=== PATIENT | female | born 1990 | race Caucasian/White ===

== ENCOUNTER 2020-02-04 10:25 | Outpatient (CLI) | payer OTHER ==
[~2020-02-04 10:25] MED LIST: Acetaminophen 500 MG TAB PO PRN; Butorphanol Tartrate 1 MG/ML VIAL SLOW IVP PRN; Diphenoxylate HCl/Atropine Tablet PO PRN; Docusate 100 MG CAP PO PRN; HYDROcodone/Acetaminophen 5/325 mg Tablet PO PRN; Ibuprofen 800 MG TAB PO PRN; Lactated Ringer's 1,000 ML IV SCH; Lidocaine 1% (PF) 30 ML VIAL SC PRN; Misoprostol 100 MCG TAB VAG SCH; Misoprostol 200 MCG TAB PR PRN; NS / Oxytocin 40 units/1000ml 1,000 ML IV PRN; NS w/ Oxytocin 10 units 500 ML IV SCH; Ondansetron PF 4 MG/2 ML Vial IVP PRN; Promethazine HCl 25 MG/ML VIAL IM PRN; Zolpidem Tartrate 5 MG TAB PO PRN; hydrALAZINE 20 MG/ML VIAL SLOW IVP PRN
[2020-02-04 18:00] LABS: SARS-CoV-2 MS2 Positive; SARS-CoV-2 N Gene Negative; SARS-CoV-2 S Gene Negative; SARS-CoV-2 by NAA Not Detected (NotDetected); SARS-CoV-2 orf1ab Negative
== END 2020-02-04 10:26 | disposition home or self-care (01) ==
LOC: LABBT 10:25
PROVIDERS: ATTEND Obstetrics & Gynecology
DX: Z01.812 Encounter for preprocedural laboratory examination (principal); Z20.828 Contact with and (suspected) exposure to other viral communicable diseases
CPT/HCPCS: 87635; U0003

== ENCOUNTER 2020-02-05 05:40 | Inpatient (IN) | payer OTHER ==
[2020-02-05 06:14] VITALS: BMI 38.4
[2020-02-05] MEDS ORDERED: Lactated Ringer's 1,000 ML IV SCH (08:15)
[2020-02-05] MEDS ORDERED: hydrALAZINE 20 MG/ML VIAL SLOW IVP PRN (08:15)
[2020-02-05] MEDS ORDERED: Butorphanol Tartrate 1 MG/ML VIAL SLOW IVP PRN (08:15)
[2020-02-05] MEDS ORDERED: Ibuprofen 800 MG TAB PO PRN (08:15)
[2020-02-05] MEDS ORDERED: HYDROcodone/Acetaminophen 5/325 mg Tablet PO PRN (08:15)
[2020-02-05] MEDS ORDERED: NS / Oxytocin 40 units/1000ml 1,000 ML IV PRN (08:15)
[2020-02-05] MEDS ORDERED: Lidocaine 1% (PF) 30 ML VIAL SC PRN (08:15)
[2020-02-05] MEDS ORDERED: NS w/ Oxytocin 10 units 500 ML IV SCH (08:15)
[2020-02-05] MEDS ORDERED: Ondansetron PF 4 MG/2 ML Vial IVP PRN ×2 (08:15→11:36)
[2020-02-05 08:47] LABS: Hemoglobin 10.8 g/dL (12.0-16.0); Mean Corpuscular HGB CONC 33.6 g/dL (32.0-36.0); Mean Corpuscular Hemoglobin 28.7 pg (27.0-31.0); Mean Corpuscular Volume 85.5 fL (78.0-98.0); Mean Platelet Volume 7.3 fL (7.4-10.4); Platelet Count 330 thou/uL (130-400); Red Blood Cell (RBC) Count 3.77 mill/uL (4.20-5.40); White Blood Cell (WBC) Count 15.9 thou/uL (4.8-10.8)
[2020-02-05 09:27] LABS: Syphilis Antibody Nonreactive (Nonreactive); Syphilis Antibody Index 0.03 S/CO (<1.00 Non-Reactive)
[2020-02-05 09:28] LABS: HBSAg Index 0.17 S/CO (0-0.99); Hep B Surf Ag Non-Reactive S/CO (NonReactive)
[2020-02-05] MEDS ORDERED: Bupivacaine 0.5% 20 ML, fentaNYL Citrate/PF 400 MCG in Sodium Chloride 0.9% 72 ML EPIDURAL SCH (10:45)
[2020-02-05] MEDS ORDERED: DISCONTINUE ALL PREVIOUS NARCOTICS FS SCH (10:45)
[2020-02-05] MEDS ORDERED: Promethazine HCl 25 MG/ML VIAL IM PRN (11:36)
[2020-02-05] MEDS ORDERED: diphenhydrAMINE 50 MG/ML VIAL IVP PRN (11:36)
[2020-02-05] MEDS ORDERED: Acetaminophen 325 MG TAB PO PRN (11:36)
[2020-02-05] MEDS ORDERED: Lactated Ringer's 500 ML IV PRN (11:36)
[2020-02-05] MEDS ORDERED: Naloxone HCl 0.4 mg/ml Vial IVP PRN ×2 (11:36)
[2020-02-05] MEDS ORDERED: ePHEDrine 50 MG/ML VIAL SLOW IVP PRN (11:36)
[2020-02-05] MEDS ORDERED: Fentanyl 4 mcg/Bupivacaine 0.1% Cassette 100 ML EPIDURAL SCH (11:45)
[2020-02-05] MEDS ORDERED: Communication Order-Pharmacy FS SCH (11:45)
[2020-02-05] MEDS ORDERED: Terbutaline Sulfate 1 MG/ML VIAL ONE (11:53)
[2020-02-05] MEDS ORDERED: Bupivacaine/Epinephrine 0.25% 30 ML VIAL ONE (12:43)
[2020-02-06] MEDS ORDERED: diphenhydrAMINE 25 MG CAP PO PRN (01:19)
[2020-02-06] MEDS ORDERED: Misoprostol 200 MCG TAB VAG PRN (01:19)
[2020-02-06] MEDS ORDERED: hydrALAZINE 20 MG/ML VIAL SLOW IVP PRN (01:19)
[2020-02-06] MEDS ORDERED: Zolpidem Tartrate 5 MG TAB PO PRN (01:19)
[2020-02-06] MEDS ORDERED: Milk Of Magnesia 30 ML UDCUP PO PRN (01:19)
[2020-02-06] MEDS ORDERED: Benzocaine-Menthol 82.5 ML CAN TOP PRN (01:19)
[2020-02-06] MEDS ORDERED: Preparation H Ointment 28 GM TUBE PR PRN (01:19)
[2020-02-06] MEDS ORDERED: Bisacodyl 10 MG SUPP PR PRN (01:19)
[2020-02-06] MEDS ORDERED: Ondansetron PF 4 MG/2 ML Vial IVP PRN (01:19)
[2020-02-06] MEDS ORDERED: Lanolin Ointment 7 GM TUBE TOP PRN (01:19)
[2020-02-06] MEDS ORDERED: HYDROcodone/Acetaminophen 5/325 mg Tablet PO PRN (01:19)
[2020-02-06] MEDS ORDERED: NS / Oxytocin 40 units/1000ml 1,000 ML IV SCH (01:30)
[2020-02-06] MEDS: Ibuprofen 800 MG TAB PO SCH ×4 (02:49→21:35)
[2020-02-06] MEDS: Ferrous Sulfate 325 MG TAB PO SCH ×2 (07:56→17:45)
[2020-02-06 08:15] LABS: Hemoglobin 9.3 g/dL (12.0-16.0); Mean Corpuscular HGB CONC 33.2 g/dL (32.0-36.0); Mean Corpuscular Hemoglobin 28.4 pg (27.0-31.0); Mean Corpuscular Volume 85.4 fL (78.0-98.0); Mean Platelet Volume 7.3 fL (7.4-10.4); Platelet Count 271 thou/uL (130-400); Red Blood Cell (RBC) Count 3.28 mill/uL (4.20-5.40); White Blood Cell (WBC) Count 18.2 thou/uL (4.8-10.8)
[2020-02-06] MEDS: Prenatal Vitamin 1 TAB PO SCH (08:38)
[2020-02-06] MEDS: HYDROcodone/Acetaminophen 5/325 mg Tablet PO PRN ×4 (08:39→22:41)
[2020-02-06] MEDS: Docusate Calcium (SURFAK) 240 MG CAP PO SCH ×2 (08:39→21:35)
[2020-02-06] MEDS ORDERED: Adacel (T-DAP) 0.5 ML SYRINGE IM ONE (09:00)
[2020-02-07] MEDS: Ibuprofen 800 MG TAB PO SCH ×3 (05:23→21:46)
[2020-02-07] MEDS ORDERED: Preparation H Ointment 57 gram tube RC PRN (05:34)
[2020-02-07] MEDS: Prenatal Vitamin 1 TAB PO SCH (09:32)
[2020-02-07] MEDS: Docusate Calcium (SURFAK) 240 MG CAP PO SCH ×2 (09:32→21:50)
[2020-02-07] MEDS: HYDROcodone/Acetaminophen 5/325 mg Tablet PO PRN ×2 (09:33→14:25)
[2020-02-07] MEDS: Ferrous Sulfate 325 MG TAB PO SCH ×2 (09:36→18:25)
[2020-02-08] MEDS: Ibuprofen 800 MG TAB PO SCH ×2 (05:33→05:39)
[2020-02-08] MEDS: Docusate Calcium (SURFAK) 240 MG CAP PO SCH (08:54)
[2020-02-08] MEDS: Prenatal Vitamin 1 TAB PO SCH (08:54)
[2020-02-08] MEDS: Ferrous Sulfate 325 MG TAB PO SCH (08:54)
[2020-02-08 09:03] VITALS: BP 127/87; TEMP 98.1
== END 2020-02-08 13:14 | disposition home or self-care (01) | DRG 807 ==
LOC: L&D/OP 05:40 → L&D 17:32 → 3SW 02-06 06:20
PROVIDERS: ADMIT Obstetrics & Gynecology; ATTEND Obstetrics & Gynecology
PROC: 10E0XZZ Delivery of Products of Conception, External Approach (ICD-10-PCS; principal; 2020-02-06)
PROC: 10907ZC Drainage of Amniotic Fluid, Therapeutic from Products of Conception, Via Natural or Artificial Opening (ICD-10-PCS; 2020-02-06)
PROC: 0W8NXZZ Division of Female Perineum, External Approach (ICD-10-PCS; 2020-02-06)
DX: O99.02 Anemia complicating childbirth (principal); Z37.0 Single live birth; Z3A.39 39 weeks gestation of pregnancy; O70.1 Second degree perineal laceration during delivery; D64.9 Anemia, unspecified; O76 Abnormality in fetal heart rate and rhythm complicating labor and delivery
CPT/HCPCS: 36415; 51702; 85027; 86780; 86850; 86900; 86901; 87340; 87635; 99285; J2405; J2590; J3010; J3105; J3490; U0003

== ENCOUNTER 2020-04-07 12:02 | Day surgery (SDC) | payer OTHER ==
[2020-04-03 10:29] VITALS: BMI 31.7
[~2020-04-07 12:02] MED LIST changes: -Acetaminophen 500 MG TAB PO PRN; -Butorphanol Tartrate 1 MG/ML VIAL SLOW IVP PRN; +Dexamethasone 20 MG/5 ML VIAL ONE; -Diphenoxylate HCl/Atropine Tablet PO PRN; -Docusate 100 MG CAP PO PRN; +Glycopyrrolate 0.2 MG/ML 5 ML SYRINGE ONE; -HYDROcodone/Acetaminophen 5/325 mg Tablet PO PRN; -Ibuprofen 800 MG TAB PO PRN; -Lactated Ringer's 1,000 ML IV SCH; -Lidocaine 1% (PF) 30 ML VIAL SC PRN; +Lidocaine 1% PF 5 ML VIAL ONE; -Misoprostol 100 MCG TAB VAG SCH; -Misoprostol 200 MCG TAB PR PRN; -NS / Oxytocin 40 units/1000ml 1,000 ML IV PRN; -NS w/ Oxytocin 10 units 500 ML IV SCH; -Ondansetron PF 4 MG/2 ML Vial IVP PRN; +Ondansetron PF 4 MG/2 ML Vial ONE; +PROPOFOL 200 MG/20 ML VIAL ONE; -Promethazine HCl 25 MG/ML VIAL IM PRN; +Rocuronium Bromide 10 MG/ML (10ML VIAL) ONE; -Zolpidem Tartrate 5 MG TAB PO PRN; -hydrALAZINE 20 MG/ML VIAL SLOW IVP PRN
[2020-04-07] MEDS ORDERED: Fentanyl 100 MCG/2 ML VIAL ONE ×2 (12:08→14:49)
[2020-04-07] MEDS ORDERED: Iothalamate Meglumine 60% 50 ML VIAL FS ONE (12:17)
[2020-04-07] MEDS ORDERED: Bupivacaine 0.25% HCL 30 ML VIAL ONE (12:17)
[2020-04-07] MEDS ORDERED: XYLOCAINE 2%-EPI 1:100,000 20 ML VIAL ONE (12:19)
[2020-04-07] MEDS ORDERED: Acetaminophen 500 MG TAB ONE (12:25)
[2020-04-07] MEDS ORDERED: Ketorolac Tromethamine 30 MG/ML VIAL ONE (12:25)
[2020-04-07] MEDS ORDERED: Midazolam HCl 2 mg/2 ml Vial ONE (12:46)
[2020-04-07] MEDS ORDERED: SUGAMMADEX SODIUM 200 MG/2 ML VIAL ONE (14:26)
[2020-04-07] MEDS ORDERED: Meperidine HCl/PF 25 MG/ML VIAL ONE (14:30)
[2020-04-07] MEDS ORDERED: HYDROcodone/Acetaminophen 5/325 mg Tablet ONE (15:55)
[2020-04-07] MEDS ORDERED: Promethazine HCl 25 MG/ML VIAL ONE (16:09)
--- NOTE | 2020-04-09 21:36 | OP ---
DATE OF PROCEDURE: 04/07/2020 PREOPERATIVE DIAGNOSIS: Symptomatic cholelithiasis. POSTOPERATIVE DIAGNOSIS: Symptomatic cholelithiasis. PROCEDURE PERFORMED: Laparoscopic cholecystectomy. ANESTHESIA: General endotracheal. INDICATIONS FOR PROCEDURE: The patient is a 29-year-old white female. She presented with symptoms referable to gallbladder and ultrasound proven cholelithiasis. She was taken to the operating room at this time for laparoscopic cholecystectomy. She is approximately eight weeks . DESCRIPTION OF PROCEDURE: Informed consent was obtained. The patient was taken to the operating room where general endotracheal anesthesia was obtained with the patient in the supine position. The abdomen was prepped with Betadine and draped in the usual sterile fashion. 0.25% Marcaine with epinephrine was infiltrated below the umbilicus and a 10 mm infraumbilical incision was created. A Veress needle was passed through this incision into the peritoneal cavity. A pneumoperitoneum was established using carbon dioxide up to a pressure of 15 mmHg. Local anesthetic was infiltrated and 3 additional 5 mm right upper quadrant incisions were created. Through the mid incision, a 5 mm port was passed into the peritoneal cavity. The camera was passed through this port and under direct vision, an 11 port was passed through the infraumbilical incision. The camera was replaced through this port, and under direct vision, 2 additional 5 mm ports were passed through the incisions already created. The gallbladder was grasped and retracted in a cephalad direction. Minimal adhesions were bluntly stripped away from the apex of the gallbladder, and the apex was retracted laterally and inferiorly. Careful dissection was carried out to the apex of the gallbladder to identify the cystic duct and cystic artery. These were each carefully dissected circumferentially. The duct was of normal caliber. Both the duct and the artery were divided between clips, leaving 2 on the side to remain within the abdomen. The gallbladder was then dissected out of the gallbladder fossa using electrocautery and removed through the infraumbilical port site. The fascia was closed with 0 Vicryl suture and a GraNee needle. The right upper quadrant was inspected and irrigated. All irrigant was aspirated. All ports and instruments were removed under direct vision. Pneumoperitoneum was carefully evacuated. Additional local anesthetic was infiltrated into each port site. The skin edges were approximated with 4-0 Monocryl subcuticular sutures, and Dermabond was placed externally. There were no complications. The patient tolerated the procedure well and was taken to the recovery room in stable condition. FINDINGS: The gallbladder was without acute inflammation. There was no ductal dilatation or inflammation. Cholangiogram was not obtained. The operation was performed essentially without blood loss. There were numerous small stones present within the gallbladder at the time of removal. There were no complications. Job ID: [id number]
== END 2020-04-07 16:50 | disposition home or self-care (01) ==
LOC: SDC 12:02
PROVIDERS: ATTEND Specialist
PROC: 0FT44ZZ Resection of Gallbladder, Percutaneous Endoscopic Approach (ICD-10-PCS; principal; 2020-04-07)
DX: K80.10 Calculus of gallbladder with chronic cholecystitis without obstruction (principal); Z79.899 Other long term (current) drug therapy
CPT/HCPCS: 88304; J0690; J1100; J1885; J2175; J2250; J2405; J2550; J2704; J3010; S0020